=== PATIENT | female | born 1995 | race Caucasian/White ===

== ENCOUNTER 2016-09-02 21:40 | Emergency (ER) | payer BC, MEDICAID ==
[~2016-09-02] VITALS: Ht 162.6 cm; Wt 93.0 kg
[2016-09-02 22:33] VITALS: BP_SYST 140
[2016-09-02] MEDS ORDERED: KETOROLAC TROMETHAMINE 60 MG/2 ML VIAL IM ONE (23:30)
[2016-09-03 00:08] VITALS: BP_SYST 122
== END 2016-09-03 00:08 | disposition home or self-care (01) ==
LOC: SED 21:40
DX: S01.01XA Laceration without foreign body of scalp, initial encounter (principal); F41.9 Anxiety disorder, unspecified; Z88.5 Allergy status to narcotic agent; X58.XXXA Exposure to other specified factors, initial encounter; Y93.89 Activity, other specified; Y92.89 Other specified places as the place of occurrence of the external cause; Y99.8 Other external cause status
CPT/HCPCS: 96372; 99283; J1885

== ENCOUNTER 2017-02-20 19:46 | Emergency (ER) | payer MEDICAID ==
[~2017-02-20] VITALS: Ht 162.6 cm; Wt 81.6 kg
[2017-02-20 19:54] VITALS: BP_SYST 144
[2017-02-20 21:02] LABS: BASOPHILS # (AUTO) 0.1 K/uL (0.0-0.2); BASOPHILS % (AUTO) 0.9 % (0.0-2.0); EOSINOPHILS # (AUTO) 0.4 K/uL (0.0-0.4); EOSINOPHILS % (AUTO) 4.1 % (0.0-4.0); HEMATOCRIT 39.7 % (36-48); HEMOGLOBIN 13.2 g/dL (12.0-16.0); LYMPHOCYTES # (AUTO) 1.9 K/uL (1.0-5.5); LYMPHOCYTES % (AUTO) 19.7 % (20.5-51.5); MEAN CORPUSCULAR HEMOGLOBIN 27 pg (27-31); MEAN CORPUSCULAR HGB CONC 33 % (32-36); MEAN CORPUSCULAR VOLUME 82 fL (79.0-98.0); MONOCYTES # (AUTO) 0.6 K/uL (0.0-1.0); MONOCYTES % (AUTO) 6.6 % (1.7-9.3); NEUTROPHILS # (AUTO) 6.7 K/uL (1.8-7.7); NEUTROPHILS % (AUTO) 68.7 % (40.0-70.0); PLATELET COUNT (AUTO) 367 K/uL (130-430); RED BLOOD CELL COUNT(AUTO) 4.83 MIL/uL (4.2-6.2); RED CELL DISTRIBUTION WIDTH 12.4 % (9.0-15.0); WHITE BLOOD COUNT (AUTO) 9.7 K/uL (4.8-10.8)
[2017-02-20 21:12] LABS: CALCIUM 8.8 mg/dL (8.4-11.0); POTASSIUM 3.7 mmol/L (3.5-5.1)
[2017-02-21 01:10] VITALS: BP_SYST 165
== END 2017-02-21 01:10 | disposition home or self-care (01) ==
LOC: SED 19:46
DX: R07.89 Other chest pain (principal); Z88.5 Allergy status to narcotic agent; F41.9 Anxiety disorder, unspecified
CPT/HCPCS: 36415; 71010; 80048; 81025; 84484; 85025; 93005; 99285

== ENCOUNTER 2017-06-01 11:31 | Emergency (ER) | payer MEDICAID ==
[~2017-06-01] VITALS: Ht 160 cm; Wt 95.3 kg
[2017-06-01 11:58] VITALS: BP_SYST 132
[2017-06-01 12:28] LABS: BILIRUBIN,URINE NEGATIVE (NEGATIVE); BLOOD, URINE NEGATIVE (NEGATIVE); CLARITY/URINE CLEAR (CLEAR); COLOR,URINE YELLOW (YELLOW); GLUCOSE,URINE NEGATIVE (NEGATIVE); KETONES,URINE NEGATIVE (NEGATIVE); LEUKOCYTE ESTERASE ,URINE NEGATIVE (NEGATIVE); NITRITE, URINE NEGATIVE (NEGATIVE); PH,URINE 6.5 (5.0-8.0); PROTEIN URINE NEGATIVE (NEGATIVE); UROBILINOGEN,URINE 0.2 (0.2-1.0)
[2017-06-01 13:01] LABS: BASOPHILS # (AUTO) 0.1 K/uL (0.0-0.2); BASOPHILS % (AUTO) 0.6 % (0.0-2.0); EOSINOPHILS # (AUTO) 0.4 K/uL (0.0-0.4); EOSINOPHILS % (AUTO) 4.2 % (0.0-4.0); HEMATOCRIT 38.5 % (36-48); HEMOGLOBIN 12.9 g/dL (12.0-16.0); LYMPHOCYTES # (AUTO) 1.9 K/uL (1.0-5.5); LYMPHOCYTES % (AUTO) 20.3 % (20.5-51.5); MEAN CORPUSCULAR HEMOGLOBIN 27 pg (27-31); MEAN CORPUSCULAR HGB CONC 34 % (32-36); MEAN CORPUSCULAR VOLUME 82 fL (79.0-98.0); MONOCYTES # (AUTO) 0.8 K/uL (0.0-1.0); MONOCYTES % (AUTO) 8.8 % (1.7-9.3); NEUTROPHILS # (AUTO) 6.4 K/uL (1.8-7.7); NEUTROPHILS % (AUTO) 66.1 % (40.0-70.0); PLATELET COUNT (AUTO) 426 K/uL (130-430); RED BLOOD CELL COUNT(AUTO) 4.71 MIL/uL (4.2-6.2); RED CELL DISTRIBUTION WIDTH 12.4 % (9.0-15.0); WHITE BLOOD COUNT (AUTO) 9.6 K/uL (4.8-10.8)
[2017-06-01 13:19] LABS: CALCIUM 8.8 mg/dL (8.4-11.0); CREATININE 0.67 mg/dL (0.55-1.30); POTASSIUM 3.3 mmol/L (3.5-5.1)
[2017-06-01 13:37] LABS: ALBUMIN 3.7 g/dL (3.4-4.8); TOTAL BILIRUBIN 0.5 mg/dL (0.0-1.0)
[2017-06-01] MEDS ORDERED: POTASSIUM CHLORIDE 20 MEQ TAB.PRT.SR PO ONE (14:45)
[2017-06-01 15:09] VITALS: BP_SYST 130
== END 2017-06-01 15:09 | disposition home or self-care (01) ==
LOC: SED 11:31
DX: O26.891 Other specified pregnancy related conditions, first trimester (principal); R10.30 Lower abdominal pain, unspecified; R19.7 Diarrhea, unspecified; F41.9 Anxiety disorder, unspecified; Z3A.01 Less than 8 weeks gestation of pregnancy; Z88.5 Allergy status to narcotic agent
CPT/HCPCS: 36415; 76801; 76817; 80053; 81003; 81025; 84702-TC; 85025; 99285

== ENCOUNTER 2017-06-03 10:47 | Emergency (ER) | payer MEDICAID ==
[~2017-06-03] VITALS: Ht 160 cm; Wt 95.3 kg
[2017-06-03 11:05] VITALS: BP_SYST 147
== END 2017-06-03 12:50 | disposition home or self-care (01) ==
LOC: SED 10:47
DX: O26.891 Other specified pregnancy related conditions, first trimester (principal); R19.7 Diarrhea, unspecified; R10.9 Unspecified abdominal pain; F41.9 Anxiety disorder, unspecified; Z88.5 Allergy status to narcotic agent; Z3A.01 Less than 8 weeks gestation of pregnancy
CPT/HCPCS: 36415; 84702-TC; 99283

== ENCOUNTER 2017-06-18 15:53 | Emergency (ER) | payer MEDICAID ==
[~2017-06-18] VITALS: Ht 162.6 cm; Wt 95.3 kg
[2017-06-18 16:33] VITALS: BP_SYST 138
[2017-06-18 17:39] LABS: BASOPHILS # (AUTO) 0.1 K/uL (0.0-0.2); BASOPHILS % (AUTO) 1.1 % (0.0-2.0); EOSINOPHILS # (AUTO) 0.4 K/uL (0.0-0.4); EOSINOPHILS % (AUTO) 2.9 % (0.0-4.0); HEMATOCRIT 37.2 % (36-48); HEMOGLOBIN 12.6 g/dL (12.0-16.0); LYMPHOCYTES # (AUTO) 2.4 K/uL (1.0-5.5); LYMPHOCYTES % (AUTO) 19.2 % (20.5-51.5); MEAN CORPUSCULAR HEMOGLOBIN 27 pg (27-31); MEAN CORPUSCULAR HGB CONC 34 % (32-36); MEAN CORPUSCULAR VOLUME 81 fL (79.0-98.0); MONOCYTES # (AUTO) 0.9 K/uL (0.0-1.0); NEUTROPHILS # (AUTO) 8.7 K/uL (1.8-7.7); NEUTROPHILS % (AUTO) 69.8 % (40.0-70.0); PLATELET COUNT (AUTO) 346 K/uL (130-430); RED BLOOD CELL COUNT(AUTO) 4.62 MIL/uL (4.2-6.2); RED CELL DISTRIBUTION WIDTH 12.9 % (9.0-15.0); WHITE BLOOD COUNT (AUTO) 12.5 K/uL (4.8-10.8)
[2017-06-18 18:04] LABS: CALCIUM 8.8 mg/dL (8.4-11.0); CREATININE 0.58 mg/dL (0.55-1.30); POTASSIUM 3.8 mmol/L (3.5-5.1)
[2017-06-18 18:30] LABS: TOTAL BILIRUBIN 0.4 mg/dL (0.0-1.0)
[2017-06-18 18:36] LABS: ALBUMIN 3.1 g/dL (3.4-4.8)
[2017-06-18 19:49] LABS: BILIRUBIN,URINE NEGATIVE (NEGATIVE); BLOOD, URINE NEGATIVE (NEGATIVE); CLARITY/URINE CLEAR (CLEAR); COLOR,URINE YELLOW (YELLOW); GLUCOSE,URINE NEGATIVE (NEGATIVE); KETONES,URINE NEGATIVE (NEGATIVE); LEUKOCYTE ESTERASE ,URINE NEGATIVE (NEGATIVE); NITRITE, URINE NEGATIVE (NEGATIVE); PROTEIN URINE NEGATIVE (NEGATIVE); UROBILINOGEN,URINE 0.2 (0.2-1.0)
[2017-06-18 20:13] VITALS: BP_SYST 122
== END 2017-06-18 20:13 | disposition home or self-care (01) ==
LOC: SED 15:53
DX: O20.0 Threatened abortion (principal); F41.9 Anxiety disorder, unspecified; Z88.5 Allergy status to narcotic agent; Z3A.01 Less than 8 weeks gestation of pregnancy
CPT/HCPCS: 36415; 76801; 76817; 80053; 81003; 81025; 84702-TC; 85025; 86901; 99285